=== PATIENT | male | born 1980 | race Caucasian/White ===

== ENCOUNTER 2019-09-17 19:06 | Emergency (ER) | payer OTHER ==
--- NOTE | 2019-09-17 19:33 | UC ---
[facility] HPI - HPI Summary HPI Summary: L sided dental drainage from gums, he thinks he has broken tooth w/ abscess. Pt states it is "leaking", and there is a "bubble on his gums". Pt does not have an appointment set up with a dentist currently. - History of Current Complaint Chief Complaint: UCDentalProblem Stated Complaint: DENTAL Time Seen by Provider: 09/17/19 19:20 Hx Obtained From: Patient Pain Intensity: 0 Pain Scale Used: 0-10 Numeric - Allergies/Home Medications Allergies/Adverse Reactions: Allergies Allergy/AdvReac Type Severity Reaction Status Date / Time No Known Allergies Allergy Verified 09/17/19 19:41 PMH/Surg Hx/FS Hx/Imm Hx - Additional Past Medical History Additional PMH: no chronic conditions Previously Healthy: Yes - Surgical History Surgical History: Yes Surgery Procedure, Year, and Place: R foot - Social History Alcohol Use: None Substance Use Type: None Smoking Status (MU): Heavy Every Day Tobacco Smoker Amount Used/How Often: 1/2 ppd Review of Systems All Other Systems Reviewed And Are Negative: Yes Constitutional: Negative: Fever, Chills, Fatigue ENT: Positive: Dental Pain. Negative: Sore Throat, Ear Ache Physical Exam Triage Information Reviewed: Yes Appearance: Well-Appearing Vital Signs: Initial Vital Signs Temp 98.6 F 09/17/19 19:20 Pulse 93 09/17/19 19:20 Resp 18 09/17/19 19:20 Pulse Ox 100 09/17/19 19:20 Vital Signs Reviewed: Yes Dental: Positive: Abscess @ - L upper/molar Neck: Positive: Supple Cardiovascular Exam: Normal Abdominal Exam: Normal Dental Complaint Course/Dx - Course Course Of Treatment: POssible dental abscess at L upper back molar, afebrile, good vitals. Strongly encouraged pt to see dental w/in the next 10 days or abscess may return. discussed side effects of medication. - Differential Dx/Diagnosis Differential Diagnosis/Dx: Dental Abscess, Dental Caries, Fractured Tooth, Peritonsillar Abcess Provider Diagnosis: Tooth abscess Discharge ED - Sign-Out/Discharge Documenting (check all that apply): Patient Departure All imaging exams completed and their final reports reviewed: No Studies - Discharge Plan Condition: Good Disposition: HOME Prescriptions: Amoxicillin/Clavulanate TAB* [Augmentin TAB 500 mg*] 500 mg PO BID 10 Days #20 tab Patient Education Materials: Dental Abscess (ED) Referrals: No Primary Care Phys,NOPCP [Primary Care Provider] - Additional Instructions: This infection will return once the antibiotics are stopped. Please try to make appt with dental within the next 10 days. - Billing Disposition and Condition Condition: GOOD Disposition: Home
== END 2019-09-17 19:58 | disposition home or self-care (01) ==
LOC: UCCORT 19:06
DX: K04.7 Periapical abscess without sinus (principal); F17.210 Nicotine dependence, cigarettes, uncomplicated
CPT/HCPCS: 99202; G0463